=== PATIENT | female | born 1960 | race Caucasian/White ===

== ENCOUNTER 2018-08-20 12:47 | Outpatient (CLI) | payer OTHER ==
[2018-08-20 14:35] LABS: BASOPHILS % (AUTO) 0.6 % (0-1); EOSINOPHILS # (AUTO) 0.4 X10'3 (0-0.9); EOSINOPHILS % (AUTO) 4.4 % (0-6); HEMATOCRIT 41.9 % (35.0-45.0); HEMOGLOBIN 13.7 g/dl (12.0-16.0); LYMPHOCYTES # (AUTO) 2.7 X10'3 (1.1-4.8); LYMPHOCYTES % (AUTO) 31.6 % (21-51); MEAN CORPUSCULAR HEMOGLOBIN 29.8 PG (27.0-31.0); MEAN CORPUSCULAR HGB CONC 32.7 g/dL (33.0-36.5); MEAN CORPUSCULAR VOLUME 90.9 FL (78-98); MEAN PLATELET VOLUME 7.9 FL (7.4-10.4); MONOCYTES # (AUTO) 0.7 X10'3 (0-0.9); MONOCYTES % (AUTO) 8.2 % (2-12); NEUTROPHILS # (AUTO) 4.7 X10'3 (1.8-7.7); NEUTROPHILS % (AUTO) 55.2 % (42-75); PLATELET COUNT 315 X10'3 (140-440); RED BLOOD COUNT 4.61 X10'6 (4.20-5.60); RED CELL DISTRIBUTION WIDTH 13.6 % (11.5-14.5); WHITE BLOOD COUNT 8.5 X10'3 (4.5-11.0)
[2018-08-20 14:43] LABS: HEMOGLOBIN A1C 6.6 % (4.5-6.2)
[2018-08-20 14:52] LABS: ALANINE AMINOTRANSFERASE 16 U/L (12-78); ALBUMIN 3.9 G/DL (3.4-5.0); ALKALINE PHOSPHATASE 57 IU/L (46-116); ANION GAP 11 (8-16); ASPARTATE AMINO TRANSFERASE 13 U/L (10-37); BILIRUBIN,TOTAL 0.2 MG/DL (0.1-1.0); BLOOD UREA NITROGEN 13 MG/DL (7-18); BUN/CREATININE RATIO 18.3 (6.6-38.0); CALCIUM 9.6 MG/DL (8.5-10.1); CHLORIDE 102 MMOL/L (99-107); CHOL/HDL RATIO 3.3 (0.00-4.99); CHOLESTEROL 306 MG/DL (0-200); CREATININE 0.71 MG/DL (0.40-0.90); GLUCOSE 94 MG/DL (70-104); HDL CHOLESTEROL 92 MG/DL (35-60); LDL CHOLESTEROL 193 MG/DL (50-100); MAGNESIUM 2.1 MG/DL (1.5-2.4); SODIUM 139 MMOL/L (135-145); TOTAL CARBON DIOXIDE 25.9 MMOL/L (24-32); TOTAL PROTEIN 7.7 G/DL (6.4-8.2); TRIGLYCERIDES 109 MG/DL (20-135); eGFR 85 ML/MIN
[2018-08-22 14:18] LABS: VITAMIN D, 25-HYDROXY 51.2 ng/mL (30.0-100.0)
== END 2018-08-20 23:59 | disposition home or self-care (01) ==
LOC: LAB 12:47
PROVIDERS: ATTEND Physician Assistant Surgical
DX: E55.9 Vitamin D deficiency, unspecified (principal); E11.8 Type 2 diabetes mellitus with unspecified complications; K90.49 Malabsorption due to intolerance, not elsewhere classified; E78.5 Hyperlipidemia, unspecified; R68.89 Other general symptoms and signs; R79.89 Other specified abnormal findings of blood chemistry
CPT/HCPCS: 36415; 80053; 80061; 82306; 82607; 82746; 83036; 83735; 85025

== ENCOUNTER 2018-08-24 15:39 | Outpatient (CLI) | payer OTHER ==
[2018-08-24] MEDS ORDERED: iohexol 350MG/ML 100ml bottle IV ONE (15:45)
== END 2018-08-24 23:59 | disposition home or self-care (01) ==
LOC: 64 CT 15:39
PROVIDERS: ATTEND Physician Assistant Surgical
DX: G43.909 Migraine, unspecified, not intractable, without status migrainosus (principal); G44.221 Chronic tension-type headache, intractable; H81.13 Benign paroxysmal vertigo, bilateral; M48.02 Spinal stenosis, cervical region; E04.2 Nontoxic multinodular goiter; J34.89 Other specified disorders of nose and nasal sinuses; M25.78 Osteophyte, vertebrae
CPT/HCPCS: 70496; 70498; Q9967

== ENCOUNTER 2020-11-30 15:11 | Outpatient (CLI) | payer BC | END 2020-11-30 23:59 | disposition home or self-care (01) | LOC: CARD DIAG 15:11 | PROVIDERS: ATTEND Physician Assistant Surgical | DX: I34.0 Nonrheumatic mitral (valve) insufficiency (principal) | CPT/HCPCS: 93306 ==

== ENCOUNTER 2021-04-02 07:54 | Outpatient (CLI) | payer BC ==
[2021-04-02 16:33] LABS: BASOPHILS # (AUTO) 0.1 X10'3 (0-0.2); BASOPHILS % (AUTO) 0.7 % (0-1); EOSINOPHILS # (AUTO) 0.3 X10'3 (0-0.9); EOSINOPHILS % (AUTO) 3.2 % (0-6); HEMATOCRIT 39.8 % (35.0-45.0); HEMOGLOBIN 13.1 g/dl (12.0-16.0); LYMPHOCYTES # (AUTO) 2.1 X10'3 (1.1-4.8); LYMPHOCYTES % (AUTO) 25.7 % (21-51); MEAN CORPUSCULAR HEMOGLOBIN 27.5 PG (27.0-31.0); MEAN CORPUSCULAR HGB CONC 33.1 g/dL (33.0-36.5); MEAN CORPUSCULAR VOLUME 83.2 FL (78-98); MONOCYTES # (AUTO) 0.8 X10'3 (0-0.9); MONOCYTES % (AUTO) 9.8 % (2-12); NEUTROPHILS % (AUTO) 60.6 % (42-75); PLATELET COUNT 332 X10'3 (140-440); RED BLOOD COUNT 4.78 X10'6 (4.20-5.60); RED CELL DISTRIBUTION WIDTH 17.5 % (11.5-14.5); WHITE BLOOD COUNT 8.3 X10'3 (4.5-11.0)
[2021-04-02 16:42] LABS: ALANINE AMINOTRANSFERASE 19 U/L (12-78); ALKALINE PHOSPHATASE 69 IU/L (46-116); ANION GAP 8 (8-16); ASPARTATE AMINO TRANSFERASE 15 U/L (10-37); BILIRUBIN,TOTAL 0.2 MG/DL (0.1-1.0); BLOOD UREA NITROGEN 13 MG/DL (7-18); BUN/CREATININE RATIO 17.8 (6.6-38.0); CALCIUM 9.3 MG/DL (8.5-10.1); CHLORIDE 103 MMOL/L (99-107); CHOL/HDL RATIO 2.9 (0.00-4.99); CHOLESTEROL 228 MG/DL (0-200); CREATININE 0.73 MG/DL (0.40-0.90); GLUCOSE 124 MG/DL (70-104); HDL CHOLESTEROL 80 MG/DL (35-60); LDL CHOLESTEROL 125 MG/DL (50-100); POTASSIUM 4.1 MMOL/L (3.5-5.1); SODIUM 141 MMOL/L (135-145); TOTAL PROTEIN 7.9 G/DL (6.4-8.2); TRIGLYCERIDES 144 MG/DL (20-135); eGFR 82 ML/MIN
[2021-04-02 16:59] LABS: HEMOGLOBIN A1C 6.6 % (4.5-6.2)
== END 2021-04-02 23:59 | disposition home or self-care (01) ==
LOC: RAD 07:54
PROVIDERS: ATTEND Physician Assistant Surgical
DX: E11.8 Type 2 diabetes mellitus with unspecified complications (principal); R68.89 Other general symptoms and signs; E78.00 Pure hypercholesterolemia, unspecified; R42 Dizziness and giddiness; R51.9 Headache, unspecified; R78.89 Finding of other specified substances, not normally found in blood; E55.9 Vitamin D deficiency, unspecified; R94.6 Abnormal results of thyroid function studies
CPT/HCPCS: 36415; 70551; 80053; 80061; 82306; 83036; 84443; 85025

== ENCOUNTER 2022-06-07 15:10 | Outpatient (CLI) | payer BC ==
[~2022-06-07 15:10] MED LIST: GENT5DRO4 RIGHTEYE
[2022-06-07 15:52] LABS: BASOPHILS % (AUTO) 0.5 % (0-1); EOSINOPHILS # (AUTO) 0.2 X10'3 (0-0.9); EOSINOPHILS % (AUTO) 2.6 % (0-6); HEMATOCRIT 41.7 % (35.0-45.0); HEMOGLOBIN 13.9 g/dl (12.0-16.0); LYMPHOCYTES # (AUTO) 2.7 X10'3 (1.1-4.8); MEAN CORPUSCULAR HEMOGLOBIN 30.2 PG (27.0-31.0); MEAN CORPUSCULAR HGB CONC 33.3 g/dL (33.0-36.5); MEAN CORPUSCULAR VOLUME 90.8 FL (78-98); MEAN PLATELET VOLUME 7.4 FL (7.4-10.4); MONOCYTES # (AUTO) 0.8 X10'3 (0-0.9); MONOCYTES % (AUTO) 9.1 % (2-12); NEUTROPHILS # (AUTO) 5.4 X10'3 (1.8-7.7); NEUTROPHILS % (AUTO) 58.8 % (42-75); PLATELET COUNT 303 X10'3 (140-440); RED BLOOD COUNT 4.59 X10'6 (4.20-5.60); RED CELL DISTRIBUTION WIDTH 13.9 % (11.5-14.5); WHITE BLOOD COUNT 9.2 X10'3 (4.5-11.0)
[2022-06-07 16:10] LABS: HEMOGLOBIN A1C 6.3 % (4.5-6.2)
[2022-06-07 16:21] LABS: ALANINE AMINOTRANSFERASE 17 U/L (12-78); ALBUMIN 3.9 G/DL (3.4-5.0); ALBUMIN/GLOBULIN RATIO 1.1 (1.1-1.5); ALKALINE PHOSPHATASE 69 IU/L (46-116); ANION GAP 8 (8-16); ASPARTATE AMINO TRANSFERASE 18 U/L (10-37); BILIRUBIN,TOTAL 0.2 MG/DL (0.1-1.0); BLOOD UREA NITROGEN 12 MG/DL (7-18); BUN/CREATININE RATIO 14.5 (6.6-38.0); CALCIUM 8.9 MG/DL (8.5-10.1); CHLORIDE 104 MMOL/L (99-107); CHOL/HDL RATIO 2.6 (0.00-4.99); CHOLESTEROL 231 MG/DL (0-200); CREATININE 0.83 MG/DL (0.40-0.90); GLUCOSE 111 MG/DL (70-104); HDL CHOLESTEROL 89 MG/DL (35-60); LDL CHOLESTEROL 108 MG/DL (50-100); POTASSIUM 3.7 MMOL/L (3.5-5.1); SODIUM 141 MMOL/L (135-145); TOTAL CARBON DIOXIDE 29.2 MMOL/L (24-32); TOTAL PROTEIN 7.5 G/DL (6.4-8.2); TRIGLYCERIDES 164 MG/DL (20-135); eGFR 70 ML/MIN
== END 2022-06-07 23:59 | disposition home or self-care (01) ==
LOC: LAB 15:10
PROVIDERS: ATTEND Physician Assistant Surgical
DX: E11.9 Type 2 diabetes mellitus without complications (principal); R68.89 Other general symptoms and signs; R79.89 Other specified abnormal findings of blood chemistry; E78.5 Hyperlipidemia, unspecified; K90.49 Malabsorption due to intolerance, not elsewhere classified; R94.6 Abnormal results of thyroid function studies
CPT/HCPCS: 36415; 80053; 80061; 82306; 83036; 84443; 85025

== ENCOUNTER 2022-10-13 08:00 | Outpatient (CLI) | payer BC ==
[2022-10-12 15:20] LABS: THIIODOTHRONINE, FREE, SERUM 2.8 pg/mL (2.0-4.4); THYROID PEROXIDASE AB <9 IU/mL (0-34)
[~2022-10-13 08:00] MED LIST changes: +GENT5DRO22 RIGHTEYE; -GENT5DRO4 RIGHTEYE
== END 2022-10-13 23:59 | disposition home or self-care (01) ==
LOC: RAD 08:00
PROVIDERS: ATTEND Internal Medicine Endocrinology, Diabetes & Metabolism
DX: E04.2 Nontoxic multinodular goiter (principal); E05.90 Thyrotoxicosis, unspecified without thyrotoxic crisis or storm
CPT/HCPCS: 36415; 78014; 84439; 84443; 84445; 84481; 86376; A9516

== ENCOUNTER 2022-10-31 14:23 | Outpatient (CLI) | payer BC | END 2022-10-31 23:59 | disposition home or self-care (01) | LOC: LAB 14:23 | PROVIDERS: ATTEND Internal Medicine Endocrinology, Diabetes & Metabolism | DX: E11.9 Type 2 diabetes mellitus without complications (principal) | CPT/HCPCS: 36415; 82043 ==

== ENCOUNTER 2023-08-10 14:08 | Outpatient (CLI) | payer BC ==
[~2023-08-10 14:08] MED LIST changes: +GEN0.3OS RIGHTEYE; -GENT5DRO22 RIGHTEYE
[2023-08-10 16:04] LABS: ALANINE AMINOTRANSFERASE 34 U/L (12-78); ALBUMIN 3.6 G/DL (3.4-5.0); ALBUMIN/GLOBULIN RATIO 0.9 (1.1-1.5); ALKALINE PHOSPHATASE 65 IU/L (46-116); ANION GAP 7 (8-16); ASPARTATE AMINO TRANSFERASE 18 U/L (10-37); BILIRUBIN,TOTAL 0.2 MG/DL (0.1-1.0); BLOOD UREA NITROGEN 15 MG/DL (7-18); BUN/CREATININE RATIO 16.9 (10.0-20.0); CALCIUM 8.7 MG/DL (8.5-10.1); CHLORIDE 103 MMOL/L (99-107); CHOL/HDL RATIO 2.3 (0.00-4.99); CHOLESTEROL 206 MG/DL (0-200); CREATININE 0.89 MG/DL (0.40-0.90); GLUCOSE 142 MG/DL (70-104); HDL CHOLESTEROL 88 MG/DL (35-60); LDL CHOLESTEROL 93 MG/DL (50-100); POTASSIUM 3.5 MMOL/L (3.5-5.1); SODIUM 140 MMOL/L (135-145); THYROID STIMULATING HORMONE 0.41 ulU/ml (0.34-4.50); TOTAL CARBON DIOXIDE 29.7 MMOL/L (24-32); TOTAL PROTEIN 7.4 G/DL (6.4-8.2); TRIGLYCERIDES 199 MG/DL (20-135); eGFR 64 ML/MIN
[2023-08-10 16:29] LABS: HEMOGLOBIN A1C 6.2 % (4.5-6.2)
[2023-08-12 14:52] LABS: AFP,SERUM, TUMOR MARKER 2.7 ng/mL (0.0-9.2); CANCER ANTIGEN 125 12.9 U/mL (0.0-38.1); CARCINOEMBRYONIC ANTIGEN 0.9 ng/mL (0.0-4.7); CREATININE, URINE 49.1 mg/dL (Not Estab.); MICROALB/CRT, RATIO <6 mg/g creat (0-29); MICROALBUMIN,U,RANDOM <3.0 ug/mL (Not Estab.); VITAMIN D, 25-HYDROXY 40.3 ng/mL (30.0-100.0)
== END 2023-08-10 23:59 | disposition home or self-care (01) ==
LOC: VAS 14:08
PROVIDERS: ATTEND Physician Assistant Surgical
DX: M79.89 Other specified soft tissue disorders (principal); M79.604 Pain in right leg; E11.9 Type 2 diabetes mellitus without complications
CPT/HCPCS: 36415; 80053; 80061; 82043; 82103; 82306; 82378; 82570; 83036; 83615; 84443; 86301; 86304; 93926; 93971

== ENCOUNTER 2024-06-04 10:59 | Outpatient (CLI) | payer BC ==
[2024-06-04 12:24] LABS: ALANINE AMINOTRANSFERASE 19 U/L (12-78); ALBUMIN 4.2 G/DL (3.4-5.0); ALBUMIN/GLOBULIN RATIO 1.2 (1.1-1.5); ALKALINE PHOSPHATASE 64 IU/L (46-116); ANION GAP 6 (8-16); ASPARTATE AMINO TRANSFERASE 13 U/L (10-37); BILIRUBIN,TOTAL 0.4 MG/DL (0.1-1.0); BLOOD UREA NITROGEN 10 MG/DL (7-18); BUN/CREATININE RATIO 16.7 (10.0-20.0); CALCIUM 8.8 MG/DL (8.5-10.1); CHLORIDE 105 MMOL/L (99-107); CHOL/HDL RATIO 2.4 (0.00-4.99); CHOLESTEROL 220 MG/DL (0-200); GLUCOSE 77 MG/DL (70-104); HDL CHOLESTEROL 93 MG/DL (35-60); LDL CHOLESTEROL 103 MG/DL (50-100); SODIUM 142 MMOL/L (135-145); TOTAL CARBON DIOXIDE 30.8 MMOL/L (24-32); TOTAL PROTEIN 7.6 G/DL (6.4-8.2); TRIGLYCERIDES 68 MG/DL (20-135); eGFR > 90 ML/MIN
[2024-06-05 15:29] LABS: CREATININE, URINE 41.9 mg/dL (Not Estab.); MICROALBUMIN,U,RANDOM 4.3 ug/mL (Not Estab.)
== END 2024-06-04 23:59 | disposition home or self-care (01) ==
LOC: RAD 10:59
PROVIDERS: ATTEND Internal Medicine Endocrinology, Diabetes & Metabolism
DX: E11.9 Type 2 diabetes mellitus without complications (principal); E55.9 Vitamin D deficiency, unspecified; E78.5 Hyperlipidemia, unspecified; E05.90 Thyrotoxicosis, unspecified without thyrotoxic crisis or storm
CPT/HCPCS: 36415; 80053; 80061; 82043; 82306; 82570; 83036; 84443

== ENCOUNTER 2024-06-04 11:12 | Outpatient (CLI) | payer BC | END 2024-06-04 23:59 | disposition home or self-care (01) | LOC: MRI02 11:12 | PROVIDERS: ATTEND Physician Assistant Surgical | DX: M51.379 Other intervertebral disc degeneration, lumbosacral region without mention of lumbar back pain or lower extremity pain (principal); M47.817 Spondylosis without myelopathy or radiculopathy, lumbosacral region; M48.07 Spinal stenosis, lumbosacral region; M53.3 Sacrococcygeal disorders, not elsewhere classified | CPT/HCPCS: 72148; 72195 ==

== ENCOUNTER 2025-01-13 15:53 | Outpatient (CLI) | payer BC ==
[2025-01-13 16:38] LABS: MEAN PLATELET VOLUME 7.2 FL (7.4-10.4); RED CELL DISTRIBUTION WIDTH 14.0 % (11.5-14.5)
[2025-01-13 16:56] LABS: CHOL/HDL RATIO 3.5 (0.00-4.99); CREATININE 0.86 MG/DL (0.40-0.90); LDL CHOLESTEROL 206 MG/DL (50-100); TOTAL CARBON DIOXIDE 31.4 MMOL/L (24-32); eGFR 67 ML/MIN
== END 2025-01-13 23:59 | disposition home or self-care (01) ==
LOC: RAD 15:53
PROVIDERS: ATTEND Physician Assistant Surgical
DX: R68.89 Other general symptoms and signs (principal); K90.49 Malabsorption due to intolerance, not elsewhere classified; E78.5 Hyperlipidemia, unspecified; R79.89 Other specified abnormal findings of blood chemistry
CPT/HCPCS: 36415; 80053; 80061; 82043; 82306; 82570; 83036; 84439; 84443; 85025

== ENCOUNTER 2025-01-24 16:00 | Outpatient (CLI) | payer BC ==
--- NOTE | 2025-01-24 16:59 | RADIOLOGY REPORT ---
PROCEDURE: MR MRI LUMBAR SPINE Indication: SCIATICA COMPARISON: MR MRI LUMBAR SPINE on DOS: 06/04/24 TECHNIQUE: Multiplanar multisequence images of the the lumbar spine are obtained. FINDINGS: For the purpose of this examination, there are 5 lumbar vertebral body types counting from the lumbosacral junction. Lumbar vertebral body heights maintained. Moderate to severe multilevel disc space narrowing and desiccation most pronounced at L3-4. Degenerative edematous endplate changes at L3-4. Conus terminates at the L1 level. L1-2: Tiny disc protrusion. Mild facet and flavum hypertrophy. No spinal canal stenosis. Mild left neural foraminal stenosis. L2-3: 3 mm disc protrusion. Mild facet and flavum hypertrophy. No spinal canal stenosis. Bwjh-nj-ihwrohwj bilateral neural foraminal stenosis. L3-4: 4 mm disc protrusion. Facet and flavum hypertrophy. Thecal sac measures 8 mm AP. Woui-ak-vnqsibot spinal canal stenosis. Moderate to severe left and moderate right neural foraminal stenosis. L4-5: 3 mm disc protrusion. Moderate facet and flavum hypertrophy. Thecal sac measures 9 mm AP. Mild spinal canal stenosis. Moderate bilateral neural foraminal stenosis. L5-S1: 4 mm right paracentral disc protrusion. This compresses upon the descending right S1 nerve root. There is severe right and moderate to severe left neural foraminal stenosis. Thecal sac measures 8 mm AP. Zljf-bm-jjmxleqa spinal canal stenosis. IMPRESSION: Moderate to severe lumbar degenerative disc disease. 4 mm right paracentral disc protrusion at L5-S1 which compresses upon the descending right S1 nerve root. There is also severe right and moderate to severe left neural foraminal stenosis at L5-S1. Moderate to severe neural foraminal stenosis at L3-4. Dhqm-jk-uwhiaipe neural foraminal stenosis at L2-3 and L4-5. Mild neural foraminal stenosis L1-2. Dkxc-bo-tgyabmhq spinal canal stenosis at L5-S1, L3-4. Mild spinal canal stenosis L4-5.
== END 2025-01-24 23:59 | disposition home or self-care (01) ==
LOC: MRI 16:00
PROVIDERS: ATTEND Physician Assistant Surgical
DX: M51.17 Intervertebral disc disorders with radiculopathy, lumbosacral region (principal); M48.07 Spinal stenosis, lumbosacral region; M47.817 Spondylosis without myelopathy or radiculopathy, lumbosacral region
CPT/HCPCS: 72148